=== PATIENT | female | born 1990 | race Caucasian/White ===

== ENCOUNTER 2020-01-04 08:52 | Emergency (ER) | payer MEDICAID ==
--- NOTE | 2020-01-04 09:43 | EDM.PDOC ---
ED HPI GENERAL MEDICAL PROBLEM - General Chief Complaint: Lower Extremity Injury/Pain Stated Complaint: RIGHT FOOT IS SORE Time Seen by Provider: 01/04/20 09:40 Source of Information: Reports: Patient History Limitations: Reports: No Limitations - History of Present Illness INITIAL COMMENTS - FREE TEXT/NARRATIVE: pt was moving a washing machine and she is not sure what happened 4 days ago but she is now having swelling of thr foot and it is painful by the small toe and up over the dorsum of the foot. Onset: Gradual, Other (incident happened 4 days ago. ) Duration: Hour(s): Location: Reports: Lower Extremity, Right Associated Symptoms: Reports: No Other Symptoms Right Feet Pain Score (Numeric/FACES): 8 - Related Data Allergies Allergy/AdvReac Type Severity Reaction Status Date / Time No Known Allergies Allergy Verified 01/04/20 09:15 Home Meds: Home Meds NK [No Known Home Meds] 01/04/20 [History] Past Medical History Gastrointestinal History: Reports: Cholelithiasis - Past Surgical History GI Surgical History: Reports: Cholecystectomy Social & Family History - Tobacco Use Smoking Status *Q: Current Every Day Smoker Years of Tobacco use: 15 Packs/Tins Daily: 1 - Caffeine Use Caffeine Use: Reports: Coffee - Recreational Drug Use Recreational Drug Use: No Review of Systems - Review of Systems Review Of Systems: See Below Constitutional: Reports: No Symptoms Eyes: Reports: No Symptoms Ears: Reports: No Symptoms Nose: Reports: No Symptoms Mouth/Throat: Reports: No Symptoms Respiratory: Reports: No Symptoms Cardiovascular: Reports: No Symptoms GI/Abdominal: Reports: No Symptoms Genitourinary: Reports: No Symptoms Musculoskeletal: Reports: Other (pain in the rt foot bythe small toe. ) Skin: Reports: No Symptoms Neurological: Reports: No Symptoms ED EXAM, GENERAL - Physical Exam Exam: See Below Free Text/Narrative:: pt arrived with a history of moving a washing machine and she thinks the machine may have hit her foot . She is not exactly sure. She now has pain in the foot and is having problems walking on the foot. Exam Limited By: No Limitations General Appearance: Alert, Moderate Distress Ears: Normal TMs Nose: Normal Inspection Throat/Mouth: Normal Inspection Head: Atraumatic Neck: Normal Inspection Respiratory/Chest: No Respiratory Distress Cardiovascular: Regular Rate, Rhythm Back Exam: Normal Inspection Extremities: Other ( rt foot has mild swelling. She is very tender by the small toe area. She is having trouble ambulating on the foot. ) Course - Vital Signs Last Recorded V/S: Last Vital Signs Temp 36.5 C 01/04/20 09:07 Pulse 103 H 01/04/20 09:07 Resp 16 01/04/20 09:07 BP 120/62 01/04/20 09:07 Pulse Ox 97 01/04/20 09:07 - Orders/Labs/Meds Orders: Active Orders 24 hr Category Date Time Status Foot Comp Min 3V Rt [CR] Stat Exams 01/04/20 09:38 Taken Meds: Medications Discontinued Medications Generic Name Dose Route Start Last Admin Trade Name Freq PRN Reason Stop Dose Admin Ibuprofen 600 mg 01/04/20 10:15 Motrin PO 01/04/20 10:16 ONETIME ONE - Re-Assessments/Exams Free Text/Narrative Re-Assessment/Exam: 01/04/20 10:21 xrays were obtained which did not reveal any fractures. Departure - Departure Time of Disposition: 10:16 Disposition: Home, Self-Care 01 Condition: Fair Clinical Impression: Contusion of foot - Discharge Information Referrals: PCP,None [Primary Care Provider] - Forms: ED Department Discharge Care Plan Goals: cool pack for the next 48 hours then start soaking in warm water, crutches until the discomfort is better, elevate when possible, wrap with dilcia wrap, motrin 600mg tid for the next 4 days. Sepsis Event Note - Evaluation Sepsis Screening Result: No Definite Risk - Focused Exam Vital Signs: Vital Signs Temp Pulse Resp BP Pulse Ox 01/04/20 09:07 36.5 C 103 H 16 120/62 97 Date Exam was Performed: 01/04/20 Time Exam was Performed: 10:18 - My Orders Last 24 Hours: My Active Orders 01/04/20 09:38 Foot Comp Min 3V Rt [CR] Stat - Assessment/Plan Last 24 Hours: My Active Orders 01/04/20 09:38 Foot Comp Min 3V Rt [CR] Stat
[2020-01-04] MEDS ORDERED: Ibuprofen 600 MG Tab PO ONE (10:15)
--- NOTE | 2020-01-04 10:23 | CR ---
FOOT RIGHT 3 views CLINICAL HISTORY:Swelling FINDINGS:There is no acute fracture or dislocation. Articular surfaces are smooth. No foreign body seen Impression: Negative
== END 2020-01-04 10:25 | disposition home or self-care (01) ==
LOC: JP.ED 08:52
DX: S90.31XA Contusion of right foot, initial encounter (principal); F17.210 Nicotine dependence, cigarettes, uncomplicated; X58.XXXA Exposure to other specified factors, initial encounter
CPT/HCPCS: 73630-26-RT; 73630-RT; 99282; 99283-25